=== PATIENT | female | born 1945 | race Caucasian/White ===

== ENCOUNTER → 2018-03-18 | Outpatient (CLI) | payer OTHER | END | disposition home or self-care (01) | LOC: LAB 11:35 → LAB SHORT 11:35 | DX: N39.0 Urinary tract infection, site not specified (principal) | CPT/HCPCS: 87077; 87086; 87186 ==

== ENCOUNTER → 2021-04-13 | Outpatient (CLI) | payer OTHER | END | disposition home or self-care (01) | LOC: LAB 14:36 → LAB SHORT 14:36 | DX: R30.9 Painful micturition, unspecified (principal) | CPT/HCPCS: 87086 ==

== ENCOUNTER 2022-02-08 18:07 | Emergency (ER) | payer OTHER ==
[~2022-02-08] VITALS: Ht 170.2 cm; Wt 84.8 kg
[2022-02-08 18:32] LABS: Source, Urine Clean Catch
[2022-02-08 18:36] LABS: Appearance, Urine Cloudy (Clear); Bilirubin, Urine Neg (Neg); Blood, Urine 5+ (Neg); Color, Urine Brown (P-Yellow); Glucose Qualitative, Urine Neg (Neg); Ketones, Urine 1+ (Neg); Leukocyte Esterase, Urine 3+ (Neg); Nitrite, Urine Pos (Neg); Protein, Urine 3+ (Neg); Urobilinogen, Urine 1+ (Normal)
[2022-02-08 18:45] LABS: Bacteria Many /hpf; Hyaline Casts 0-2 /lpf (0-2); RBC Cast 0-2 /lpf (0); Red Blood Cells, Urine TNTC /hpf (0-2); Squamous Epithelial Cells Mod /hpf (Few); WBC Cast 0-2 /lpf (0); White Blood Cells, Urine TNTC /hpf (0-5)
[2022-02-08] MEDS ORDERED: CEPH500 PO (18:50)
== END 2022-02-08 20:22 | disposition home or self-care (01) ==
LOC: ER 18:07
PROVIDERS: Physician Assistant
DX: N39.0 Urinary tract infection, site not specified (principal)
CPT/HCPCS: 81001; A9270

== ENCOUNTER → 2023-05-17 | Outpatient (CLI) | payer OTHER ==
[~2023-05-17] MED LIST: CEPH500 PO
== END | disposition home or self-care (01) ==
LOC: LAB 11:03 → LAB SHORT 11:03
DX: N39.0 Urinary tract infection, site not specified (principal)
CPT/HCPCS: 87077; 87086; 87186

== ENCOUNTER → 2023-11-07 | Outpatient (CLI) | payer OTHER | END | disposition home or self-care (01) | LOC: LAB SHORT 16:24 | DX: N39.0 Urinary tract infection, site not specified (principal) | CPT/HCPCS: 87077; 87086; 87186 ==